=== PATIENT | female | born 1945 | race Caucasian/White ===

== ENCOUNTER 2017-07-20 09:27 | Emergency (ER) | payer BC ==
[2017-07-20 09:55] VITALS: BP 149/60
--- NOTE | 2017-07-20 10:36 | UC ---
Cardiac HPI - HPI Summary HPI Summary: CHEST PAIN X 3 WEEK LOCATED MID STERNAL AREA, RADIATES TO THE BACK AND UPPER STOMACH AREA WORSE AT NIGHT TIME , IMPROVES WITH CHANGE IN POSITION AND SITTING UP NO FEVER, NO CHILLS, NO SOB , NO DIAPHORESIS PT STOPPED HER gerd MEDICATION 6 MONTHS AGO - History of Current Complaint Chief Complaint: UCGeneralIllness Stated Complaint: BACK/MEAGAN RIB AREA PAIN/UPP RESP/CHEST TREVER Time Seen by Provider: 07/20/17 10:05 Hx Obtained From: Patient Onset/Duration: Gradual Onset, Lasting Weeks - 3, Still Present Initial Severity: Moderate Current Severity: None Pain Intensity: 0 Chest Pain Location: Mid Sternal Character: Burning Aggravating Factor(s): Other - LYING DOWN Alleviating Factor(s): Position Associated Signs & Symptoms: Positive: Chest Pain, Nausea/Vomiting. Negative: Vision Changes, Anxiety, Recent Stress, Headaches, Numbness, Tingling, Weakness , Dizziness, SOB, Swelling, Syncope, Fever, Diaphoresis, Palpitations, Cough, Hemoptysis, Back Pain, Abdominal Pain, Calf Pain/Swelling - Allergy/Home Medications Allergies/Adverse Reactions: Allergies Allergy/AdvReac Type Severity Reaction Status Date / Time No Known Allergies Allergy Verified 07/20/17 09:40 Home Medications: Home Medications Acetaminophen [Acetaminophen Extra Strength] 500 mg PO ONCE PRN 07/20/17 [ History Confirmed 07/20/17] Cholesterol Medication 1 tab PO DAILY 07/20/17 [History] Lisinopril TAB* [Prinivil TAB*] 5 mg PO DAILY 07/20/17 [History Confirmed ] Multivitamin [Multivitamins] 1 cap PO DAILY 07/20/17 [History Confirmed 07/20/17 ] PMH/Surg Hx/FS Hx/Imm Hx Cardiovascular History: Hypertension GI/ History: Gastroesophageal Reflux - Surgical History Surgical History: None - Family History Known Family History: Negative: Diabetes - Social History Alcohol Use: None Substance Use Type: None Smoking Status (MU): Never Smoked Tobacco Review of Systems Constitutional: Negative Skin: Negative Eyes: Negative ENT: Negative Respiratory: Negative Cardiovascular: Chest Pain Gastrointestinal: Negative Genitourinary: Negative Is Patient Immunocompromised?: No All Other Systems Reviewed And Are Negative: Yes Physical Exam Triage Information Reviewed: Yes Appearance: Well-Appearing, No Pain Distress, Well-Nourished Vital Signs: Initial Vital Signs Temp 98.8 F 07/20/17 09:50 Pulse 92 07/20/17 09:50 Resp 18 07/20/17 09:50 BP 149/60 07/20/17 09:50 Pulse Ox 99 07/20/17 09:50 Vital Signs Reviewed: Yes Eyes: Positive: Conjunctiva Clear ENT: Positive: Normal ENT inspection, Hearing grossly normal, Pharynx normal Neck: Positive: Supple, Nontender, No Lymphadenopathy Respiratory: Positive: Chest non-tender, Lungs clear, Normal breath sounds Cardiovascular: Positive: RRR, No Murmur, Pulses Normal Abdominal Exam: Normal Abdomen Description: Positive: Nontender, Soft. Negative: CVA Tenderness (R), CVA Tenderness (L), Distended, Guarding Bowel Sounds: Positive: Present Musculoskeletal Exam: Normal Skin Exam: Normal Diagnostics - EKG Cardiac Rate: NL Cardiac Rhythm: Sinus: Normal Ectopy: None ST Segment: Normal - Differential Diagnoses - Chest Pain Differential Diagnosis/HQI/PQRI: GI Disease - Clinical Impression Provider Diagnoses: GASTRITIS. GERD Discharge - Discharge Plan Condition: Stable Disposition: HOME Prescriptions: Pantoprazole Sodium [Protonix] 40 mg PO DAILY #30 granpkt. Patient Education Materials: Gastritis (ED), Gastroesophageal Reflux Disease in Children (ED) Referrals: Daniel Parra MD [Primary Care Provider] - 5 Days Additional Instructions: NORMAL EKG SYMPTOMS MOST LIKELY DUE TO INFLAMMATION OF YOUR STOMACH / ULCER SYMPTOMS ESPECIALLY SINCE YOU STOPPED TAKING YOUR REFLUX MEDICATIONS 6 MONTHS AGO WILL START PROTONIX DAILY , FOLLOW UP WITH YOUR PCP IN 2 WEEKS GOT TO ED IF GETTING WORSE
== END 2017-07-20 10:46 | disposition home or self-care (01) ==
LOC: UCCORT 09:27
DX: K29.70 Gastritis, unspecified, without bleeding (principal); K21.9 Gastro-esophageal reflux disease without esophagitis; I10 Essential (primary) hypertension
CPT/HCPCS: 93005; 99202; G0463